=== PATIENT | female | born 1980 | race Caucasian/White ===

== ENCOUNTER → 2021-03-25 | Outpatient (CLI) | payer OTHER ==
[~2021-03-25] MED LIST: BACTRIM DS TAB1 EACH PO; BASAGLAR SQ; CRESTOR5 MG PO; DOXYCYCLINE HY100 M2 PO; FLEXERIL 10 MG10 MG PO; GLUCOPHAGE500 MG PO; IBUPROFEN800 MG PO; KEFLEX CAP 500500 MG PO; LORTAB 7.5-3251 EACH PO; NAPROSYN500 MG PO; NOVOLOG FL100 UNIT/1 SQ
== END ==
LOC: KOH-I 08:19
DX: M43.16 Spondylolisthesis, lumbar region (principal); M51.06 Intervertebral disc disorders with myelopathy, lumbar region
CPT/HCPCS: 72131